=== PATIENT | male | born 1995 | race Caucasian/White ===

== ENCOUNTER 2021-07-13 12:27 | Emergency (ER) | payer OTHER ==
[~2021-07-13] VITALS: Ht 170.2 cm; Wt 61.2 kg
[~2021-07-13 12:27] MED LIST: CATAFLAM50 MG PO; KETO10TA2 PO
[2021-07-13] MEDS ORDERED: PEPCID AC20 MG PO (18:22)
[2021-07-13] MEDS ORDERED: DICLOFENAC POTA50 MG PO (18:22)
[2021-07-13] MEDS ORDERED: SYMBICORT 16010.2 GM IH (18:23)
[2021-07-13] MEDS ORDERED: ONDANSETRON ODT4 MG PO (18:23)
== END 2021-07-13 18:54 ==
LOC: ER 12:27
DX: U07.1 COVID-19 (principal)

== ENCOUNTER 2022-02-28 06:01 | Outpatient (CLI) | payer OTHER ==
[~2022-02-28 06:01] MED LIST changes: +DICLOFENAC POTA50 MG PO; +ONDANSETRON ODT4 MG PO; +PEPCID AC20 MG PO; +SYMBICORT 16010.2 GM IH
== END 2022-02-28 15:00 | disposition home or self-care (01) ==
LOC: LAB 06:01
PROVIDERS: ATTEND Obstetrics & Gynecology
DX: Z20.828 Contact with and (suspected) exposure to other viral communicable diseases (principal); Z20.818 Contact with and (suspected) exposure to other bacterial communicable diseases

== ENCOUNTER 2023-08-15 08:41 | Emergency (ER) | payer OTHER ==
[~2023-08-15] VITALS: Ht 167.6 cm; Wt 59.0 kg
[2023-08-15] MEDS ORDERED: ACETAMINOPHEN 500 MG GEL..CAP PO ONE (10:15)
[2023-08-15] MEDS ORDERED: DEXAMETHASONE SODIUM PHOSPHATE 4 MG/ML VIAL IM ONE (10:15)
[2023-08-15] MEDS ORDERED: KETOROLAC TROMETHAMINE 30 MG VIAL IM ONE (10:15)
[2023-08-15] MEDS ORDERED: DOLOGEN 325-11 EACH PO (10:27)
[2023-08-15] MEDS ORDERED: MUCINEX DM ER1 EAC1 PO (10:27)
[2023-08-15] MEDS ORDERED: ZITHROMAX200 MG PO (10:27)
[2023-08-15] MEDS ORDERED: GUAIFENESIN/DEXTROMETHORPHAN 100 MG/5 ML ML PO ONE (10:30)
== END 2023-08-15 11:36 | disposition home or self-care (01) ==
LOC: ER 08:41
DX: B34.9 Viral infection, unspecified (principal); Z88.0 Allergy status to penicillin; Z88.8 Allergy status to other drugs, medicaments and biological substances

== ENCOUNTER 2024-12-09 09:12 | Emergency (ER) | payer OTHER ==
[~2024-12-09] VITALS: Ht 167.6 cm; Wt 61.2 kg
[~2024-12-09 09:12] MED LIST changes: +DOLOGEN 325-11 EACH PO; +MUCINEX DM ER1 EAC1 PO; +ZITHROMAX200 MG PO
[2024-12-09] MEDS ORDERED: KETOROLAC TROMETHAMINE 60 MG VIAL IM ONE ×2 (11:00→11:02)
== END 2024-12-09 14:34 | disposition home or self-care (01) ==
LOC: ER 09:12
DX: S09.8XXA Other specified injuries of head, initial encounter (principal); W21.4XXA Striking against diving board, initial encounter; Y93.89 Activity, other specified; Y92.89 Other specified places as the place of occurrence of the external cause; R51.9 Headache, unspecified; Z88.0 Allergy status to penicillin; Z88.8 Allergy status to other drugs, medicaments and biological substances; J45.909 Unspecified asthma, uncomplicated; M54.2 Cervicalgia